=== PATIENT | female | born 1995 ===

== ENCOUNTER 2023-07-10 06:00 | Outpatient (RCR) | payer OTHER, SELFPAY | END 2023-07-26 23:59 | disposition home or self-care (01) | LOC: SPT 06:00 | PROVIDERS: Visit Provider Emergency Medicine | DX: R29.898 Other symptoms and signs involving the musculoskeletal system (principal) | CPT/HCPCS: 97140; 97161; 97530 ==

== ENCOUNTER 2023-07-27 06:00 | Outpatient (RCR) | payer OTHER, SELFPAY | END 2023-08-26 23:59 | disposition home or self-care (01) | LOC: SPT 06:00 | PROVIDERS: Visit Provider Emergency Medicine | DX: R29.898 Other symptoms and signs involving the musculoskeletal system (principal) | CPT/HCPCS: 97140 ==

== ENCOUNTER 2023-08-27 06:00 | Outpatient (RCR) | payer OTHER, SELFPAY | END 2023-09-26 23:59 | disposition home or self-care (01) | LOC: SPT 06:00 | PROVIDERS: Visit Provider Emergency Medicine | DX: R29.898 Other symptoms and signs involving the musculoskeletal system (principal) | CPT/HCPCS: 97140; 97530 ==